=== PATIENT | male | born 1965 | race Caucasian/White ===

== ENCOUNTER 2016-11-23 18:23 | Emergency (ER) | payer BC, OTHER ==
[~2016-11-23] VITALS: Ht 185.4 cm; Wt 115.0 kg
[~2016-11-23 18:23] MED LIST: FISH1CAP23 PO; FOLI0.4T52 PO; GARL1TAB9 PO; MAGN30TA3 PO; MULT-934 PO
[2016-11-23 18:25] VITALS: TEMP 98; Ht 185.4 cm; Wt 115.0 kg
--- OUTSIDE RECORDS SUMMARY | 2016-11-23 18:27 | XMS REPORT | Referral Summary ---
Author Author [facility], [facility] Organization [facility] Address Unknown Phone Unavailable Care Team Providers Care Neon Tube Bender Name Role Phone Sofia Thurman Primary Care Physician [phone] Encounter Date(s): 08/13/16 - 08/13/16 [facility] [address] [place] [address] Discharge Diagnosis: Acute recurrent pansinusitis Discharge Disposition: 01-Home or Self Care Attending Physician: Jorge Thurman MD Admitting Physician: Jorge Thurman MD Vital Signs Most recent to 1 oldest [Reference Range]: Temperature Tympanic 36.6 degC [36.6-38.1 degC] (08/13/16 2:43 PM) Peripheral Pulse 84 bpm Rate [60-100 bpm] (08/13/16 2:43 PM) Respiratory Rate 14 br/min [14-20 br/min] (08/13/16 2:43 PM) Blood Pressure 132/80 mmHg [90-140/60-90 mmHg] (08/13/16 2:43 PM) Problem List Condition Effective Dates Status Health Status Informant Impingement syndrome Active of right shoulder(Confirmed) Obesity(Confirmed) Active patient Allergies, Adverse Reactions, Alerts Substance Reaction Severity Status niacin RASH Active Medications Augmentin 875 mg-125 mg oral tablet 1 tabs, Oral, q12hr, X 10 days, # 20 tabs, 0 Refill(s), Pharmacy: [id number] Start Date: 08/13/16 Stop Date: 08/23/16 Status: Ordered Multiple Vitamins oral capsule 1 caps, Oral, Daily, # 90 caps, 0 Refill(s) Start Date: 02/23/15 Status: Ordered Results No data available for this section Immunizations No data available for this section Procedures Procedure Date Related Diagnosis Body Site Colonoscopy and biopsy of colon1 08/22/15 Appendectomy 12/13/08 1, biopsies revealed nonspecific colitis. Repeat in 5 years secondary to history of ulcerative colitis in the past Social History Social History Type Response Smoking Status Former smoker; Type: Oral Assessment and Plan Extracted from: Title: Office Visit Note Author: Jorge Thurman MD Date: 08/13/16 Assessment/Plan 1.Acute recurrent pansinusitis I've recommended a round of Augmentin 875 mg 1 by mouth twice a day with food. Qrxk-lor-yvekldl Mucinex may be beneficial. If not improving over the next week to 10 days or symptoms progress or worsen or further problems develop he should follow-up.
--- OUTSIDE RECORDS SUMMARY | 2016-11-23 18:27 | XMS REPORT | Referral Summary ---
Author Author [facility], [facility] Organization [facility] Address Unknown Phone Unavailable Care Team Providers Care News Technical Director Name Role Phone Sofia Thurman Primary Care Physician [phone] Encounter VC Date(s): 02/23/15 - 02/23/15 [facility] [address] [place] [address] Discharge Diagnosis: Tinea corporis Discharge Disposition: 01-Home or Self Care Attending Physician: Jorge Thurman MD Admitting Physician: Jorge Thurman MD Vital Signs Most recent to 1 oldest [Reference Range]: Temperature Tympanic 36.4 degC [36.6-38.1 degC] *LOW* (02/23/15 4:07 PM) Peripheral Pulse 76 bpm Rate [60-100 bpm] (02/23/15 4:07 PM) Respiratory Rate 16 br/min [14-20 br/min] (02/23/15 4:07 PM) Blood Pressure 130/94 mmHg [90-140/60-90 mmHg] (02/23/15 4:07 PM) Problem List Condition Effective Dates Status Health Status Informant Impingement syndrome Active of right shoulder(Confirmed) Obesity(Confirmed) Active patient Allergies, Adverse Reactions, Alerts Substance Reaction Severity Status niacin RASH Active Medications Lotrisone 1%-0.05% topical cream 1 alvin, Topical, BID, # 30 g, 1 Refill(s), Pharmacy: [id number] Start Date: 02/23/15 Status: Ordered Multiple Vitamins oral capsule 1 [...] Visit Note Author: Jorge Thurman MD Date: 02/23/15 Assessment/Plan Tinea corporis I recommended Lotrisone cream applied twice a day until clear. If not clearing over the next 2 weeks he'll let us know. Call with problems questions or concerns or if not improving. Encouraged to keep the area clean and dry change underwear frequently. Ordered: Office Visit Level 2 Est 41117 Orders: clotrimazole-betamethasone topical, 1 alvin, Topical, BID, # 30 g, 1 Refill(s), Pharmacy: [id number]
--- OUTSIDE RECORDS SUMMARY | 2016-11-23 18:27 | XMS REPORT | Referral Summary ---
Author Organization Unknown Address Unknown Phone Unavailable Care Team Providers Care Brush Cleaner Name Role Phone Sofia Thurman Primary Care Physician [phone] Encounter VC Date(s): 08/25/14 - 08/25/14 [facility] Benedict, [place] [place] [address] Discharge Diagnosis: Shoulder pain Discharge Diagnosis: Viral URI Discharge Diagnosis: Low back pain Discharge Disposition: Home or Self Care Attending Physician: Jorge Thurman MD Admitting Physician: Jorge Thurman MD Vital Signs Most recent to 1 oldest [Reference Range]: Temperature Tympanic 36.9 degC [36.6-38.1 degC] (08/25/14 2:26 PM) Peripheral Pulse 92 bpm Rate [60-100 bpm] (08/25/14 2:26 PM) Respiratory Rate 16 br/min [14-20 br/min] (08/25/14 2:26 PM) Blood Pressure 142/92 mmHg [90-140/60-90 mmHg] *HI* (08/25/14 2:26 PM) Problem List No data available for this section Allergies, Adverse Reactions, Alerts Substance Reaction Severity Status niacin RASH Active Medications meloxicam 15 mg oral tablet 1 tabs, Oral, Daily, # 30 tabs, 0 Refill(s), Pharmacy: [id number], 1 tabs Oral Daily Start Date: 07/30/14 Status: Ordered Results No data available for this section Immunizations No data available for this section Procedures Procedure Date Related Diagnosis Body Site Appendectomy 12/13/08 Social History Social History Type Response Smoking Status Former smoker; Type: Oral Assessment and Plan Extracted from: Title: Ambulatory Patient Education Author: Jorge Thurman MD Date: Family Medicine Antibiotic Nonuse Your caregiver felt that the infection or problem was not one that would be helped with an antibiotic. Infections may be caused by viruses or bacteria. Only a caregiver can tell which one of these is the likely cause of an illness. A cold is the most common cause of infection in both adults and children. A cold is a virus. Antibiotic treatment will have no effect on a viral infection. Viruses can lead to many lost days of work caring for sick children and many missed days of school. Children may catch as many as 10 "colds" or "flus" per year during which they can be tearful, cranky, and uncomfortable. The goal of treating a virus is aimed at keeping the ill person comfortable. Antibiotics are medications used to help the body fight bacterial infections. There are relatively few types of bacteria that cause infections but there are hundreds of viruses. While both viruses and bacteria cause infection they are very different types of germs. A viral infection will typically go away by itself within 7 to 10 days. Bacterial infections may spread or get worse without antibiotic treatment. Examples of bacterial infections are: Sore throats (like strep throat or tonsillitis). Infection in the lung (pneumonia). Ear and skin infections. Examples of viral infections are: Colds or flus. Most coughs and bronchitis. Sore throats not caused by Strep. Runny noses. It is often best not to take an antibiotic when a viral infection is the cause of the problem. Antibiotics can kill off the helpful bacteria that we have inside our body and allow harmful bacteria to start growing. Antibiotics can cause side effects such as allergies, nausea, and diarrhea without helping to improve the symptoms of the viral infection. Additionally, repeated uses of antibiotics can cause bacteria inside of our body to become resistant. That resistance can be passed onto harmful bacterial. The next time you have an infection it may be harder to treat if antibiotics are used when they are not needed. Not treating with antibiotics allows our own immune system to develop and take care of infections more efficiently. Also, antibiotics will work better for us when they are prescribed for bacterial infections. Treatments for a child that is ill may include: Give extra fluids throughout the day to stay hydrated. Get plenty of rest. Only give your child voso-wij-yijnnop or prescription medicines for pain, discomfort, or fever as directed by your caregiver. The use of a cool mist humidifier may help stuffy noses. Cold medications if suggested by your caregiver. Your caregiver may decide to start you on an antibiotic if: The problem you were seen for today continues for a longer length of time than expected. You develop a secondary bacterial infection. SEEK MEDICAL CARE IF: Fever lasts longer than 5 days. Symptoms continue to get worse after 5 to 7 days or become severe. Difficulty in breathing develops. Signs of dehydration develop (poor drinking, rare urinating, dark colored urine). Changes in behavior or worsening tiredness (listlessness or lethargy). Document Released: 08/26/2002 Document Revised: 09/08/2012 Document Reviewed: [facility] Patient Information 2014 [employer] [facility]. No follow up information was provided. Extracted from: Title: Office Visit Note Author: Jorge Thurman MD Date: 08/25/14 Assessment/Plan Low back pain Continue physical therapy. Continue current medications. Recheck in 1 week. He may need several more weeks of therapy and treatment before we can get him back to work. He may need to do some work hardening as well. Ordered: Office Visit Level 3 Est 74344 Shoulder pain I'm concerned that he continues to have the same amount of pain in his shoulder. If not improved in another week with therapy we may consider MRI to evaluate his rotator cuff. Ordered: Office Visit Level 3 Est 38943 Viral URI Symptomatically treatment.If symptoms persist or worsen he will let me know. Ordered: Office Visit Level 3 Est 29197
--- OUTSIDE RECORDS SUMMARY | 2016-11-23 18:27 | XMS REPORT | Referral Summary ---
Author Organization Unknown Address Unknown Phone Unavailable Care Team Providers Care Organ Installer Name Role Phone Sofia Thurman Primary Care Physician [phone] Encounter VC Date(s): 07/28/14 - 07/28/14 [facility] Benedict, [place] Family [address] [place] [address] Discharge Diagnosis: Depression Discharge Diagnosis: HTN (hypertension) Discharge Diagnosis: Shoulder pain Discharge Diagnosis: Low back pain Discharge Disposition: Home or Self Care Attending Physician: Jorge Thurman MD Admitting Physician: Jorge Thurman MD Vital Signs Most recent to 1 oldest [Reference Range]: Temperature Tympanic 36.7 degC [36.6-38.1 degC] (07/28/14 3:02 PM) Blood Pressure 152/96 mmHg [90-140/60-90 mmHg] *HI* (07/28/14 3:02 PM) Problem List No data available for this section Allergies, Adverse Reactions, Alerts Substance Reaction Severity Status niacin RASH Active Medications No Known Medications Results No data available for this section Immunizations No data available for this section Procedures Procedure Date Related Diagnosis Body Site Appendectomy 12/13/08 Social History Social History Type Response Smoking Status Former smoker; Type: Oral Assessment and Plan No data available for this section
--- OUTSIDE RECORDS SUMMARY | 2016-11-23 18:27 | XMS REPORT | Referral Summary ---
Author Organization Unknown Address Unknown Phone Unavailable Care Team Providers Care Cushion Stuffer Name Role Phone Sofia Thurman Primary Care Physician [phone] Encounter VC Date(s): 08/31/14 - 08/31/14 [facility] Benedict, [place] [address] [place] [address] Discharge Diagnosis: Low back pain Discharge Diagnosis: Shoulder pain Discharge Disposition: Home or Self Care Attending Physician: Jorge Thurman MD Admitting Physician: Jorge Thurman MD Referring Physician: Jorge Thurman MD Vital Signs Most recent to 1 oldest [Reference Range]: Temperature Tympanic 35.9 degC [36.6-38.1 degC] *LOW* (08/31/14 9:36 AM) Peripheral Pulse 76 bpm Rate [60-100 bpm] (08/31/14 9:36 AM) Respiratory Rate 16 br/min [14-20 br/min] (08/31/14 9:36 AM) Blood Pressure 124/84 mmHg [90-140/60-90 mmHg] (08/31/14 9:36 AM) Problem List No data available for this section Allergies, Adverse Reactions, Alerts Substance Reaction Severity Status niacin RASH Active Medications meloxicam 15 mg oral tablet 1 tabs, Oral, Daily, # 30 tabs, 0 Refill(s), Pharmacy: [id number], 1 tabs Oral Daily Start Date: 07/30/14 Status: Ordered Results No data available for this section Immunizations No data available for this section Procedures Procedure Date Related Diagnosis Body Site Appendectomy 12/13/08 Social History Social History Type Response Smoking Status Former smoker; Type: Oral Assessment and Plan Extracted from: Title: Ambulatory Patient Education Author: Jorge Thurman MD Date: Family Medicine Shoulder Pain The shoulder is the joint that connects your arms to your body. The bones that form the shoulder joint include the upper arm bone (humerus ), the shoulder blade (scapula ), and the collarbone (clavicle ). The top of the humerus is shaped like a ball and fits into a rather flat socket on the scapula (glenoid cavity ). A combination of muscles and strong, fibrous tissues that connect muscles to bones (tendons ) support your shoulder joint and hold the ball in the socket. Small, fluid-filled sacs (bursae ) are located in different areas of the joint. They act as cushions between the bones and the overlying soft tissues and help reduce friction between the gliding tendons and the bone as you move your arm. Your shoulder joint allows a wide range of motion in your arm. This range of motion allows you to do things like scratch your back or throw a ball. However, this range of motion also makes your shoulder more prone to pain from overuse and injury. Causes of shoulder pain can originate from both injury and overuse and usually can be grouped in the following four categories: Redness, swelling, and pain (inflammation ) of the tendon (tend i nitis ) or the bursae (bursitis ). Instability, such as a dislocation of the joint. Inflammation of the joint (arthritis ). Broken bone (fracture ). HOME CARE INSTRUCTIONS Apply ice to the sore area. Put ice in a plastic bag. Place a towel between your skin and the bag. Leave the ice on for 15-20 minutes, 3-4 times per day for the first 2 days. Stop using cold packs if they do not help with the pain. If you have a shoulder sling or immobilizer, wear it as long as your caregiver instructs. Only remove it to shower or bathe. Move your arm as little as possible, but keep your hand moving to prevent swelling. Squeeze a soft ball or foam pad as much as possible to help prevent swelling. Only take [id number]-cedayhr or prescription medicines for pain, discomfort, or fever as directed by your caregiver. SEEK MEDICAL CARE IF: Your shoulder pain increases, or new pain develops in your arm, hand, or fingers. Your hand or fingers become cold and numb. Your pain is not relieved with medicines. SEEK IMMEDIATE MEDICAL CARE IF: Your arm, hand, or fingers are numb or tingling. Your arm, hand, or fingers are significantly swollen or turn white or blue. MAKE SURE YOU: Understand these instructions. Will watch your condition. Will get help right away if you are not doing well or get worse. Document Released: 03/27/2006 Document Revised: 03/11/2013 Document Reviewed: [employer] Patient Information [address] [employer] [facility]. No follow up information was provided. Extracted from: Title: Office Visit Note Author: Jorge Thurman MD Date: 08/31/14 Assessment/Plan Low back pain Overall he is showing slow but steady improvement. I recommended continuing off work with the hope return date of 09/13. Continue medication and physical therapy. Follow-up in one week for recheck. Ordered: Office Visit Level 3 Est 95145 Shoulder pain With ongoing shoulder pain despite physical therapy and medications I've recommended an MRI for further evaluation of the rotator cuff. Follow-up in one week. Ordered: Office Visit Level 3 Est 34009 Elevated glucose Recent laboratory studies were reviewed. Fasting glucose was 132. Remainder of lab was basically unremarkable. I've encouraged him to continue to work on weight loss and low concentrated sweet diet. Repeat lab in 3-6 months.
--- OUTSIDE RECORDS SUMMARY | 2016-11-23 18:27 | XMS REPORT | Referral Summary ---
Author Organization Unknown Address Unknown Phone Unavailable Care Team Providers Care Fashion Design Professor Name Role Phone Sofia Thurman Primary Care Physician [phone] Encounter [facility] [id number] Date(s): 09/14/14 - 09/14/14 [facility] Benedict, [address] [address] [place], [place] [address] Discharge Diagnosis: Impingement syndrome of right shoulder Discharge Disposition: Home or Self Care Attending Physician: Jesse Peña MD Admitting Physician: Jesse Peña MD Vital Signs Most recent to 1 oldest [Reference Range]: Respiratory Rate 18 br/min [14-20 br/min] (09/14/14 3:46 PM) Problem List Condition Effective Dates Status Health Status Informant Impingement syndrome Active of right shoulder(Confirmed) Obesity(Confirmed) Active patient Allergies, Adverse Reactions, Alerts Substance Reaction Severity Status niacin RASH Active Medications meloxicam 15 mg oral tablet 1 tabs, Oral, Daily, # 30 tabs, 0 Refill(s), Pharmacy: [facility], 1 tabs Oral Daily Start Date: 07/30/14 Status: Ordered Results No data available for this section Immunizations No data available for this section Procedures Procedure Date Related Diagnosis Body Site Arthrocentesis, aspiration and/or injection, 09/14/14 major joint or bursa (eg, shoulder, hip, knee, subacromial bursa); without ultrasound guidance Appendectomy 12/13/08 Social History Social History Type Response Smoking Status Former smoker; Type: Oral Assessment and Plan Extracted from: Title: Office Visit Note Author: Jesse Peña MD Date: 09/14/14 Assessment/Plan Impingement syndrome of right shoulder I think his findings by exam and look at the MRI are more consistent with impingement problem. He has such good strength of the rotator cuff and no pain with testing at I don't think he has a tear. I would recommend we do one injection in the subacromial space. I did that today with 80 mg of Kenalog and 8 mL one percent lidocaine. Gave him a pamphlet with some exercises to work on. She's not doing better in a month and I need to see him back. I did give him copies of part of the MRI report. And again the radiologist does not see a tear but they, at that with all the information they think that he probably does have a tear. But that's her opinion and I do not see a complete tear anywhere. Ordered: triamcinolone, 2 mL, IntraARTICULAR , Once, First Dose: 09/14/14 18:00:00 CDT, Stop Date: 09/14/14 18:00:00 CDT, [facility] [id number] Arthro/Asp Major Joint Inj (Shoulder, Hip, Knee) 92610 Office Visit Level 3 New 24175
--- OUTSIDE RECORDS SUMMARY | 2016-11-23 18:28 | XMS REPORT | Referral Summary ---
Author Organization Unknown Address Unknown Phone Unavailable Care Team Providers Care Market Basket Maker Name Role Phone Sofia Thurman Primary Care Physician [phone] Encounter VC Date(s): 08/19/14 - 08/19/14 [facility] Benedict, [place] [address] [place] [address] Discharge Diagnosis: Back pain Discharge Diagnosis: Shoulder pain Discharge Disposition: Home or Self Care Attending Physician: Jorge Thurman MD Admitting Physician: Jorge Thurman MD Vital Signs Most recent to 1 oldest [Reference Range]: Temperature Tympanic 36.7 degC [36.6-38.1 degC] (08/19/14 3:29 PM) Peripheral Pulse 80 bpm Rate [60-100 bpm] (08/19/14 3:29 PM) Respiratory Rate 16 br/min [14-20 br/min] (08/19/14 3:29 PM) Blood Pressure 122/82 mmHg [90-140/60-90 mmHg] (08/19/14 3:29 PM) Problem List No data available for this section Allergies, Adverse Reactions, Alerts Substance Reaction Severity Status niacin RASH Active Medications meloxicam 15 mg oral tablet 1 tabs, Oral, Daily, # 30 tabs, 0 Refill(s), Pharmacy: [id number], 1 tabs Oral Daily Start Date: 07/30/14 Status: Ordered Results No data available for this section Immunizations No data available for this section Procedures Procedure Date Related Diagnosis Body Site Appendectomy 12/13/08 Social History Social History Type Response Smoking Status Former smoker; Type: Oral Assessment and Plan Extracted from: Title: Office Visit Note Author: Jorge Thurman MD Date: 08/19/14 Assessment/Plan Back pain Overall slow improvement noted. Continue current treatment with PT and oral anti-inflammatory medications. Recheck in 1 week. Further problems or concerns she'll let me now. Ordered: Office Visit Level 3 Est 49077 Shoulder pain Same plan as above. Ordered: Office Visit Level 3 Est 62812
--- OUTSIDE RECORDS SUMMARY | 2016-11-23 18:28 | XMS REPORT | Referral Summary ---
Author Author [facility] Organization [facility] Address Unknown Phone Unavailable Care Team Providers Care Nuclear Technician Name Role Phone Sofia Tuhrman Primary Care Physician [phone] Encounter Date(s): 09/16/15 - 09/16/15 [facility] [address], [place] [address] Discharge Diagnosis: Cutaneous skin tags Discharge Diagnosis: Melanocytic nevus of left lower extremity including hip Discharge Disposition: 01-Home or Self Care Attending Physician: Onur Fairchild MD Admitting Physician: Onur Fairchild MD Referring Physician: Jorge Thurman MD Vital Signs No data available for this section Problem List Condition Effective Dates Status Health Status Informant Impingement syndrome Active of right shoulder(Confirmed) Obesity(Confirmed) Active patient Allergies, Adverse Reactions, Alerts Substance Reaction Severity Status niacin RASH Active Medications Lotrisone 1%-0.05% topical cream 1 alvin, Topical, BID, # 30 g, 1 Refill(s), Pharmacy: [id number] Start Date: 02/23/15 Status: Ordered Multiple Vitamins oral capsule 1 caps, Oral, Daily, # 90 caps, 0 Refill(s) Start Date: 02/23/15 Status: Ordered Results No data available for this section Immunizations No data available for this section Procedures Procedure Date Related Diagnosis Body Site Removal of skin tags, multiple fibrocutaneous 09/16/15 tags, any area; up to and including 15 lesions Shaving of epidermal or dermal lesion, single 09/16/15 lesion, trunk, arms or legs; lesion diameter 0.5 cm or less Colonoscopy and biopsy of colon1 08/22/15 Appendectomy 12/13/08 1, biopsies revealed nonspecific colitis. Repeat in 5 years secondary to history of ulcerative colitis in the past Social History Social History Type Response Smoking Status Former smoker; Type: Oral Assessment and Plan Extracted from: Title: Office Visit Note Author: Onur Fairchild MD Date: 09/16/15 Assessment/Plan 1.Cutaneous skin tags There are numerous fleshypedunculated tags around the eyelids andbilateral axilla. We cleaned and anesthetized 11 sites with small amount of 1 percent lidocaine with epinephrine and I snip [id number] tags and hyfrecatedwhere needed to control bleeding and we placed ointment and bandages where needed. Ordered: Removal Of Skin Tags, Up To and Including 15 [id number] 2.Melanocytic nevus of left lower extremity including hip Patient had a 5 mmfleshybenign nevus on the left hipthat was bothering himdue to location and irritation. I did a shave removal of 5 mm of tissue at the site at his request for this symptomatic nevus. He declined pathologic review for thisclinically benign nevus Options/risks/benefits of the procedure were discussed and explained and consent was obtained. Specifically discussed risks of scarring, abnormal scarring, skin changes such as color or texture changes, recurrence, bleeding, infection, need for further treatment, and other unexpected risks/outcomes of these types of skin procedures. Final timeout performed. Site(s) for biopsy were prepared by cleaning and injecting each site with <1cc of buffered lidocaine with epi 1:100,000. Site(s) were removed with shave blade in usual fashion. Hemostasis was obtained with drysol and/or hyfrecation as needed. Ointment and bandages placed where needed. Wound care instructions given Ordered: Shave 1 Lesion; Trunk, Arms Or Legs (0.5 cm Or Less) [id number]
--- OUTSIDE RECORDS SUMMARY | 2016-11-23 18:28 | XMS REPORT | Referral Summary ---
Author Organization Unknown Address Unknown Phone Unavailable Care Team Providers Care Hollow Ware Maker Name Role Phone Sofia Thurman Primary Care Physician [phone] Encounter VC Date(s): 08/12/14 - 08/12/14 [facility] [place] [address] [place] [address] Discharge Diagnosis: Back pain Discharge Diagnosis: Shoulder pain Discharge Disposition: Home or Self Care Attending Physician: Jorge Thurman MD Admitting Physician: Jorge Thurman MD Vital Signs Most recent to 1 oldest [Reference Range]: Temperature Tympanic 36.0 degC [36.6-38.1 degC] *LOW* (08/12/14 3:27 PM) Peripheral Pulse 84 bpm Rate [60-100 bpm] (08/12/14 3:27 PM) Respiratory Rate 16 br/min [14-20 br/min] (08/12/14 3:27 PM) Blood Pressure 124/80 mmHg [90-140/60-90 mmHg] (08/12/14 3:27 PM) Problem List No data available for this section Allergies, Adverse Reactions, Alerts Substance Reaction Severity Status niacin RASH Active Medications meloxicam 15 mg oral tablet 1 tabs, Oral, Daily, # 30 tabs, 0 Refill(s), Pharmacy: [id number], 1 tabs Oral Daily Start Date: 07/30/14 Status: Ordered Parafon Forte DSC 500 mg oral tablet 1 tabs, Oral, q8hr, as needed for pain, X 14 days, # 42 tabs, 0 Refill(s), Pharmacy: [facility], 1 tabs Oral q8hr,x14 days,PRN:as needed for pain Start Date: 07/30/14 Stop Date: 08/13/14 Status: Ordered Results No data available for this section Immunizations No data available for this section Procedures Procedure Date Related Diagnosis Body Site Appendectomy 12/13/08 Social History Social History Type Response Smoking Status Former smoker; Type: Oral Assessment and Plan Extracted from: Title: Office Visit Note Author: Jorge Thurman MD Date: 08/12/14 Assessment/Plan Back pain I recommended continuing current medications and physical therapy. Symptoms do not improve he'll let me know. We'll continue weekly follow-up polys on medical leave. Call with problems questions or concerns. Ordered: Office Visit Level 3 Est 62846 Shoulder pain As above. Ordered: Office Visit Level 3 Est 81248
--- OUTSIDE RECORDS SUMMARY | 2016-11-23 18:28 | XMS REPORT | Referral Summary ---
Author Organization Unknown Address Unknown Phone Unavailable Care Team Providers Care Precision Lens Technician Name Role Phone Sofia Thurman Primary Care Physician [phone] Encounter VC Date(s): 10/21/14 - 10/21/14 [facility] [place] Family [address] [place] [address] Discharge Diagnosis: Radiculopathy of arm Discharge Disposition: Home or Self Care Attending Physician: Jorge Thurman MD Admitting Physician: Jorge Thurman MD Vital Signs Most recent to 1 oldest [Reference Range]: Temperature Tympanic 36.8 degC [36.6-38.1 degC] (10/21/14 3:09 PM) Peripheral Pulse 80 bpm Rate [60-100 bpm] (10/21/14 3:09 PM) Respiratory Rate 16 br/min [14-20 br/min] (10/21/14 3:09 PM) Blood Pressure 144/90 mmHg [90-140/60-90 mmHg] *HI* (10/21/14 3:09 PM) Problem List Condition Effective Dates Status Health Status Informant Impingement syndrome Active of right shoulder(Confirmed) Obesity(Confirmed) Active patient Allergies, Adverse Reactions, Alerts Substance Reaction Severity Status niacin RASH Active Medications diclofenac sodium 75 mg oral delayed release tablet 1 tabs, Oral, BID, # 60 tabs, 0 Refill(s), Pharmacy: [facility], 1 tabs Oral BID Start Date: 10/21/14 Status: Ordered Results No data available for this section Immunizations No data available for this section Procedures Procedure Date Related Diagnosis Body Site Appendectomy 12/13/08 Social History Social History Type Response Smoking Status Former smoker; Type: Oral Assessment and Plan Extracted from: Title: Ambulatory Patient Education Author: Jorge Thurman MD Date: Anesthesiology Cervical Radiculopathy Cervical radiculopathy happens when a nerve in the neck is pinched or bruised by a slipped (herniated ) disk or by arthritic changes in the bones of the cervical spine. This can occur due to an injury or as part of the normal aging process. Pressure on the cervical nerves can cause pain or numbness that runs from your neck all the way down into your arm and fingers. CAUSES There are many possible causes, including: Injury. Muscle tightness in the neck from overuse. Swollen, painful joints (arthritis ). Breakdown or degeneration in the bones and joints of the spine ( spondylosis ) due to aging. Bone spurs that may develop near the cervical nerves. SYMPTOMS Symptoms include pain, weakness, or numbness in the affected arm and hand. Pain can be severe or irritating. Symptoms may be worse when extending or turning the neck. DIAGNOSIS Your caregiver will ask about your symptoms and do a physical exam. He or she may test your strength and reflexes. X-rays, CT scans, and MRI scans may be needed in cases of injury or if the symptoms do not go away after a period of time. Electromyography (EMG) or nerve conduction testing may be done to study how your nerves and muscles are working. TREATMENT Your caregiver may recommend certain exercises to help relieve your symptoms. Cervical radiculopathy can, and often does, get better with time and treatment. If your problems continue, treatment options may include: Wearing a soft collar for short periods of time. Physical therapy to strengthen the neck muscles. Medicines, such as nonsteroidal anti-inflammatory drugs (NSAIDs), oral corticosteroids, or spinal injections. Surgery. Different types of surgery may be done depending on the cause of your problems. HOME CARE INSTRUCTIONS Put ice on the affected area. Put ice in a plastic bag. Place a towel between your skin and the bag. Leave the ice on for 15-20 minutes, 03-04 times a day or as directed by your caregiver. If ice does not help, you can try using heat. Take a warm shower or bath, or use a hot water bottle as directed by your caregiver. You may try a gentle neck and shoulder massage. Use a flat pillow when you sleep. Only take couv-ahs-xojmhrw or prescription medicines for pain, discomfort, or fever as directed by your caregiver. If physical therapy was prescribed, follow your caregiver's directions. If a soft collar was prescribed, use it as directed. SEEK IMMEDIATE MEDICAL CARE IF: Your pain gets much worse and cannot be controlled with medicines. You have weakness or numbness in your hand, arm, face, or leg. You have a high fever or a stiff, rigid neck. You lose bowel or bladder control (incontinence ). You have trouble with walking, balance, or speaking. MAKE SURE YOU: Understand these instructions. Will watch your condition. Will get help right away if you are not doing well or get worse. Document Released: 03/12/2002 Document Revised: 09/08/2012 Document Reviewed: [facility] Patient Information 2014 [employer] [facility]. No follow up information was provided. Extracted from: Title: Office Visit Note Author: Jorge Thurman MD Date: 10/21/14 Assessment/Plan Radiculopathy of arm Think this is probably a cervical radiculopathy. I could feel no mass or abnormality in the axilla. Recommended diclofenac 75 mg twice a day and regular manipulation with his chiropractor over the next week. If symptoms don't improve during that timeframe she'll let me know. He may need a cervical MRI if symptoms persist. Ordered: Office Visit Level 3 Est [id number] Orders: diclofenac, 1 tabs, Oral, BID, # 60 tabs, 0 Refill(s), Pharmacy: [id number], 1 tabs Oral BID
--- OUTSIDE RECORDS SUMMARY | 2016-11-23 18:28 | XMS REPORT | Referral Summary ---
Author Organization Unknown Address Unknown Phone Unavailable Care Team Providers Care Customer Service Cashier Name Role Phone Sofia Thurman Primary Care Physician [phone] Encounter VC Date(s): 09/07/14 - 09/07/14 [facility] [place] [address] [place] [address] Discharge Diagnosis: Shoulder pain Discharge Diagnosis: Back pain Discharge Diagnosis: Acute bronchitis Discharge Disposition: Home or Self Care Attending Physician: Jorge Thurman MD Admitting Physician: Jorge Thurman MD Vital Signs Most recent to 1 oldest [Reference Range]: Temperature Tympanic 36.1 degC [36.6-38.1 degC] *LOW* (09/07/14 10:20 AM) Peripheral Pulse 72 bpm Rate [60-100 bpm] (09/07/14 10:20 AM) Respiratory Rate 16 br/min [14-20 br/min] (09/07/14 10:20 AM) Blood Pressure 120/72 mmHg [90-140/60-90 mmHg] (09/07/14 10:20 AM) Problem List No data available for this section Allergies, Adverse Reactions, Alerts Substance Reaction Severity Status niacin RASH Active Medications meloxicam 15 mg oral tablet 1 tabs, Oral, Daily, # 30 tabs, 0 Refill(s), Pharmacy: [facility], 1 tabs Oral Daily Start Date: 07/30/14 Status: Ordered Results No data available for this section Immunizations No data available for this section Procedures Procedure Date Related Diagnosis Body Site Appendectomy 12/13/08 Social History Social History Type Response Smoking Status Former smoker; Type: Oral Assessment and Plan Extracted from: Title: Ambulatory Patient Education Author: Jorge Thurman MD Date: Family Medicine Acute Bronchitis You have acute bronchitis. This means you have a chest cold. The airways in your lungs are red and sore (inflamed ). Acute means it is sudden onset. CAUSES Bronchitis is most often caused by the same virus that causes a cold. SYMPTOMS Body aches. Chest congestion. Chills. Cough. Fever. Shortness of breath. Sore throat. TREATMENT Acute bronchitis is usually treated with rest, fluids, and medicines for relief of fever or cough. Most symptoms should go away after a few days or a week. Increased fluids may help thin your secretions and will prevent dehydration. Your caregiver may give you an inhaler to improve your symptoms. The inhaler reduces shortness of breath and helps control cough. You can take over-the- counter pain relievers or cough medicine to decrease coughing, pain, or fever. A cool-air vaporizer may help thin bronchial secretions and make it easier to clear your chest. Antibiotics are usually not needed but can be prescribed if you smoke, are seriously ill, have chronic lung problems, are elderly, or you are at higher risk for developing complications.Allergies and asthma can make bronchitis worse. Repeated episodes of bronchitis may cause longstanding lung problems. Avoid smoking and secondhand smoke.Exposure to cigarette smoke or irritating chemicals will make bronchitis worse. If you are a cigarette smoker, consider using nicotine gum or skin patches to help control withdrawal symptoms. Quitting smoking will help your lungs heal faster. Recovery from bronchitis is often slow, but you should start feeling better after 2 to 3 days. Cough from bronchitis frequently lasts for 3 to 4 weeks. To prevent another bout of acute bronchitis: Quit smoking. Wash your hands frequently to get rid of viruses or use a hand garage door hanger. Avoid other people with cold or virus symptoms. Try not to touch your hands to your mouth, nose, or eyes. SEEK IMMEDIATE MEDICAL CARE IF: You develop increased fever, chills, or chest pain. You have severe shortness of breath or bloody sputum. You develop dehydration, fainting, repeated vomiting, or a severe headache. You have no improvement after 1 week of treatment or you get worse. MAKE SURE YOU: Understand these instructions. Will watch your condition. Will get help right away if you are not doing well or get worse. Document Released: 07/25/2005 Document Revised: 09/08/2012 Document Reviewed: [facility] Patient Information 2014 [employer] [facility]. No follow up information was provided.
--- OUTSIDE RECORDS SUMMARY | 2016-11-23 18:28 | XMS REPORT | Continuity of Care Document ---
Author Author [facility] Organization [facility] Address Unknown Phone Unavailable Allergies Active Description Code Type Severity Reaction Onset Reported/Identified Relationship to Patient Clinical Status Yes niacin NKMA N/A RASH 02/26/2014 Medications Problems Procedures Results Encounters ACCT No. Visit Date/Time Discharge Status Pt. Type Provider Facility Loc./Unit Complaint [id number] 08/13/2016 14:35:00 2016 23:59:00 DIS Outpatient Jorge Thurman [facility] New FM congestion [id number] 09/16/2015 08:14:00 2015 23:59:00 DIS Outpatient Onur Fairchild [facility] E21 Derm NPV SKIN TAGS [id number] 02/23/2015 16:03:00 2014 23:59:00 DIS Outpatient Jorge Thurman [facility] New FM rash on let [id number] 08/12/2014 15:21:00 2014 23:59:00 DIS Outpatient Jorge Thurman [facility] New FM recheck back and shoulder pain [id number] 07/28/2014 14:57:00 2014 23:59:00 DIS Outpatient Jorge Thurman [facility] New FM BACK PAIN/NOT JOB RELATED [id number] 10/21/2014 15:02:00 Document Registration [id number] 08/25/2014 14:23:00 Document Registration [id number] 08/19/2014 15:27:00 Document Registration
[2016-11-23] MEDS ORDERED: NO ROUTINE MEDS (18:34)
--- NOTE | 2016-11-23 18:34 | ERPDOC ---
Departure Disposition Decision Date: November 23, 2016 Disposition Decision Time: 19:11 Disposition: 01 DISCHARGED HOME, SELF-CARE Impression Impression Impression: Primary Impression: Laceration of left little finger w/o foreign body w/o damage to nail Encounter type: initial encounter Qualified Codes: S61.217A - Laceration without foreign body of left little finger without damage to nail, initial encounter Additional Impression: Laceration of left ring finger with damage to nail w/o foreign body Encounter type: initial encounter Qualified Codes: S61.315A - Laceration without foreign body of left ring finger with damage to nail, initial encounter Severity: Moderate Condition: Stable Seen By: Physician only Referrals: SHAILESH WESTBROOK MD (PCP) Follow-up for suture removal in 10 days Patient Instructions: Care For Your Stitches (ED) Problems/Meds/Labs Reviewed?: Yes Medications reviewed and manag: Yes Follow up care ordered?: Yes Mental Status: Alert, Oriented Scripts Cephalexin (Keflex) 500 Mg Capsule 1 CAP PO TID for 7 Days, #21 CAP Prov: HANS CHRISTIANSON MD 11/23/16 HPI General Stated Complaint: FINGER LACERATION Time Seen by Provider: 18:33 Source: patient Exam Limitations: no limitations HPI Hand/Forearm Initial Comments Patient is a 51-year-old male, was out cutting a tree limb with a chainsaw and sustained a laceration to the left ring and little finger, bleeding stop by direct pressure. Patient brought to the ER for evaluation Occurred At: other Onset: Rapid Duration: 1 hr Location: left: 4th finger, 5th finger Method of Injury: incised Allergies: Coded Allergies: niacin (Unverified Allergy, Mild, RASH, 11/23/16) Past History Past Medical History Pt denies signifigant PMH Surgical History Denies Surgeries Vaccines Hx Influenza Vaccination: No Hx Pneumococcal Vaccination: No Social History Tobacco Usage: none Alcohol Usage: none Drug Usage: none Residence: home Review of Systems Constitutional Constitutional: DENIES: chills, fever Eyes Vision: DENIES: double vision, loss of visual evans ENMT Sinuses: DENIES: congestion, rhinorrhea Cardiovascular Cardiac: DENIES: chest pain GI Upper Abdomen: DENIES: pain General: DENIES: frequency, urgency Musculoskeletal General: see HPI Integumentary Skin: see HPI Hematologic/Lymphatic Hematologic/Lymphatic: DENIES: anemia Exam General General Nourishment: well nourished, well developed Vital Signs: RN Vital Signs have been reviewed: Yes Height (Feet): 6 Height (Inches): 1.00 Fastrak Hand/Forearm Hand/Forearm : Upper Extremity: Left Elbow: NOT FOUND: deformity, ecchymosis, erythema Forearm: NOT FOUND: ecchymosis, erythema, swelling, tender Wrist: NOT FOUND: ecchymosis, erythema, swelling, tender Hand: NOT FOUND: ecchymosis, erythema, swelling Fingers: cap refill <2sec ea digit, laceration, NOT FOUND: ecchymosis, erythema, impaired abduction, impaired adduction, impaired extension, impaired flexion, impaired grasp, rotational deformity, subungual hematoma Radial Pulse: 3+ Ulnar Pulse: 3+ Comments Patient's left ring finger dorsum has sustained a 4 cm laceration over the PIP, flexion extension is completely intact, on exploration of the wound there does not appear to be joint involvement, capillary refill is less than 2 seconds. Patient has a superficial avulsion of the nail, not completely through. Patient's left small finger lateral side has a 3 cm laceration flexion extension is completely intact sensation is intact distally capillary refill less than 2 seconds. Neurologic RN Documented GCS Eye Opening: Verbal: Motor: Total: Differential Diagnoses Considering: Compartment Syndrome, Fracture, Laceration, Extensor Tendon Injury , Flexor Tendon Injury, Vascular Compromise, Other (open joint) Procedures Procedures Performed Procedures Performed: Laceration Repair Laceration/Wound Repair Wound/Laceration Repair #1: Wound Location: upper extremity (left ring) Wound Length (cm): 5 Depth, Shape: subcutaneous, linear, tissue avulsed Explored: clean Irrigated: saline Prep: sureclens Anesthesia: 1% Lidocaine Volume Anesthetic (ccs): 4 Type of Block: local Wound Debrided: moderate Wound Revision?: Yes Repaired With: Sutures Suture Size: 4:0 Suture Type: prolene Number of Sutures: 9 Layer Closure?: No Extensor Tendon Repair?: No Sterile Dressing Applied?: No Splint Applied?: No Sling Applied?: No Wound/Laceration Repair #2: Wound Location: upper extremity Wound Length (cm): 3 Depth, Shape: subcutaneous, linear, tissue avulsed, contused tissue Explored: clean Irrigated: saline Prep: hibiclens Anesthesia: 1% Lidocaine Volume Anesthetic (ccs): 2 Repaired With: Sutures Suture Size: 4:0 Suture Type: prolene Number of Sutures: 6 Sterile Dressing Applied?: No Splint Applied?: No Sling Applied?: No Progress Results/Orders Orders Procedure Category Date Status Time Tetanus,Diphth,A PHA 11/23/16 Complete Pertus (Tdap) (Adacel) 18:45 Lidocaine 1% PHA 11/23/16 Complete (Xylocaine 1%) 18:45 Medications Current ED Medications Diphtheria/ Tetanus/Acell Pertussis (Adacel) 0.5 ml O ONCE IM Last administered on 11/23/16 18:45; Start 11/23/16 at 18:45; Stop 11/23/16 at 18:46 ; Status DC Lidocaine HCl (Xylocaine 1%) 100 mg O ONCE INFIL Last administered on 18:45; Start 11/23/16 at 18:45; Stop 11/23/16 at 18:46; Status DC HANS CHRISTIANSON MD November 23, 2016 18:34
[2016-11-23] MEDS ORDERED: TETANUS,DIPHTH,a PERTUS (Tdap) 0.5 ML VIAL IM ONE (18:45)
[2016-11-23] MEDS ORDERED: LIDOCAINE 1% (10mg/ml) 30ml SDV INFIL ONE (18:45)
--- NOTE | 2016-11-23 18:45 | NUR ---
PROVIDER DR CHRISTIANSON IN ROOM FOR SUTURE PROCEDURE.
[2016-11-23] MEDS ORDERED: CEPH-583 PO (19:12)
--- OUTSIDE RECORDS SUMMARY | 2016-11-23 19:18 | XMS REPORT | Continuity of Care Document ---
Author Author [facility] Organization [facility] Address Unknown Phone Unavailable Allergies Active Description Code Type Severity Reaction Onset Reported/Identified Relationship to Patient Clinical Status Yes niacin NKMA N/A RASH 02/26/2014 Medications Problems Procedures Results Encounters ACCT No. Visit Date/Time Discharge Status Pt. Type Provider Facility Loc./Unit Complaint [id number] 08/13/2016 14:35:00 2016 23:59:00 DIS Outpatient Jorge Thurman [facility] New FM congestion [id number] 09/16/2015 08:14:00 2015 23:59:00 DIS Outpatient Onur Fairchild [facility] E21 Derm NPV SKIN TAGS [id number] 02/23/2015 16:03:00 2014 23:59:00 DIS Outpatient Jorge Thurman [facility] New FM rash on let [id number] 08/12/2014 15:21:00 2014 23:59:00 DIS Outpatient Jorge Thurman [facility] New FM recheck back and shoulder pain [id number] 07/28/2014 14:57:00 2014 23:59:00 DIS Outpatient Jorge Thurman [facility] BACK PAIN/NOT JOB RELATED [id number] 10/21/2014 15:02:00 Document Registration [id number] 08/25/2014 14:23:00 Document Registration [id number] 08/19/2014 15:27:00 Document Registration
[2016-11-23 19:28] VITALS: BP 140/87; PULSE 84; RESP 18; O2SAT 97
--- NOTE | 2016-11-23 19:28 | NUR ---
DISCHARGE PT GIVEN INSTRUCTIONS FOR CONT CARE OF WOUND CARE AND STITCHES AND RX X1 KEFLEX, PT VERBALIZED UNDERSTANDING AND SIGNED FORM. PT LEFT ER AMBULATORY, ALERT, VS CHARTED, CONDITION IMPROVED AND NO ACUTE DISTRESS.
== END 2016-11-23 19:28 | disposition home or self-care (01) ==
LOC: ED 18:23
DX: S61.315A Laceration without foreign body of left ring finger with damage to nail, initial encounter (principal); S61.217A Laceration without foreign body of left little finger without damage to nail, initial encounter; W29.3XXA Contact with powered garden and outdoor hand tools and machinery, initial encounter; Y93.H2 Activity, gardening and landscaping; Y92.007 Garden or yard of unspecified non-institutional (private) residence as the place of occurrence of the external cause; Y99.8 Other external cause status
CPT/HCPCS: 90471; 90715; 96372